=== PATIENT | male | born 1950 | race Caucasian/White ===

== ENCOUNTER 2019-10-16 09:21 | Inpatient (IN) | payer MEDICARE, BC ==
[~2019-10-16] VITALS: Ht 177.8 cm; Wt 102.1 kg
--- NOTE | 2019-10-16 09:32 | NUR ---
PT IS A/OX4, BIB RA[facility], C/O "SHAKY STOMACH". PT REPORTS HE IS AN [employer]BER [employer] AND [employer]ORT [employer] AND WHILE HE WAS ON THE ROAD, HE FELT AN EPISODE OF "SHAKY STOMACH" THAT HE DESCRIBES "DIARRHEA-LIKE". VSS. NO PAIN, C/P, SOB, N/V/D, DIZZINESS, HEADACHE. BGL WAS 80 IN THE FIELD.
--- NOTE | 2019-10-16 09:54 | NUR ---
SUYAPA IGLESIAS AT BEDSIDE FOR MSE.
[2019-10-16] MEDS ORDERED: IV NORMAL SALINE 1000 ML BAG IV ONE (10:15)
[2019-10-16 10:24] LABS: BASOPHILS % (AUTO) 0.6 % (0.0-2.0); EOSINOPHILS # (AUTO) 0.2 K/uL (0.0-0.7); EOSINOPHILS % (AUTO) 2.7 % (0.0-7.0); HEMATOCRIT 45.6 % (36.7-47.1); HEMOGLOBIN 15.8 g/dL (12.5-16.3); LYMPHOCYTES # (AUTO) 1.7 K/uL (20.0-40.0); LYMPHOCYTES % (AUTO) 27.3 % (20.5-51.5); MEAN CORPUSCULAR HEMOGLOBIN 31.3 uug (23.8-33.4); MEAN CORPUSCULAR HGB CONC 35 g/dL (32.5-36.3); MEAN CORPUSCULAR VOLUME 90.2 fL (73.0-96.2); MONOCYTES # (AUTO) 0.5 K/uL (2.0-10.0); NEUTROPHILS # (AUTO) 3.8 K/uL (1.8-8.9); NEUTROPHILS % (AUTO) 61.4 % (38.5-71.5); PLATELET COUNT (AUTO) 233 K/uL (152-348); RED BLOOD CELL COUNT(AUTO) 5.06 MIL/uL (4.06-5.63); WHITE BLOOD COUNT (AUTO) 6.2 K/uL (3.6-10.2)
[2019-10-16 10:27] LABS: *BILIRUBIN,URIN NEGATIVE (NEGATIVE); *BLOOD, URINE NEGATIVE (NEGATIVE); *CLARITY,URINE CLEAR (CLEAR); *COLOR,URINE YELLOW (YELLOW); *KETONES,URINE NEGATIVE (NEGATIVE); *UROBILINOGEN,URINE 0.2 E.U./dl (NORMAL); LEUKOCYTE ESTERASE ,URINE NEGATIVE (NEGATIVE); NITRITE, URINE NEGATIVE (NEGATIVE); UGLUCOSE NEGATIVE (NEGATIVE)
[2019-10-16 10:29] LABS: CREATININE 0.8 mg/dL (0.6-1.3)
[2019-10-16 10:41] LABS: BILIRUBIN,DIRECT 0.1 mg/dL (0.0-0.2); BILIRUBIN,TOTAL 0.6 mg/dL (0.2-1.0); TOTAL PROTEIN, SERUM 8.1 g/dL (6.4-8.2)
[2019-10-16] MEDS ORDERED: ASPIRIN 325 MG TABLET ONE (12:20)
[2019-10-16] MEDS ORDERED: ASPIRIN 325 MG TABLET PO ONE (12:30)
[2019-10-16] MEDS: ASPIRIN 325 MG TABLET PO ONE ×2 (12:31→12:33)
--- NOTE | 2019-10-16 12:31 | NUR ---
ER SPEAKING W/ DR. NORTH ON PHONE RE PT'S ADMISSION.
--- NOTE | 2019-10-16 12:47 | NUR ---
admitting report given to MILLI Silva.
--- NOTE | 2019-10-16 12:48 | NUR ---
Pt. admitted to Tele room 310 , under care of [facility] completed.
[2019-10-16 13:05] VITALS: BP 135/60
--- NOTE | 2019-10-16 13:20 | NUR ---
Admitted 69 year old male to telemetry with dx of TIA. AAOx4. SR on the tele monitor. IV intact and patent. No SOB noted. Denies any pain or dizziness at this time. Safety measures implemented. Call light within reach. Will continue to monitor.
[2019-10-16 15:52] VITALS: BP 130/64
[2019-10-16] MEDS ORDERED: Z GUARD REMEDY PASTE 57 GM TUBE TOP PRN (19:15)
[2019-10-17 03:00] VITALS: BP 99/48
--- NOTE | 2019-10-17 06:16 | NUR ---
SLEPT MOST OF THE NITE TELEMETRY SINUS ALBA
[2019-10-17 07:16] LABS: BASOPHILS % (AUTO) 0.6 % (0.0-2.0); EOSINOPHILS # (AUTO) 0.2 K/uL (0.0-0.7); EOSINOPHILS % (AUTO) 3.1 % (0.0-7.0); HEMATOCRIT 44.7 % (36.7-47.1); HEMOGLOBIN 15.5 g/dL (12.5-16.3); LYMPHOCYTES # (AUTO) 2.2 K/uL (20.0-40.0); LYMPHOCYTES % (AUTO) 33.6 % (20.5-51.5); MEAN CORPUSCULAR HEMOGLOBIN 31.2 uug (23.8-33.4); MEAN CORPUSCULAR HGB CONC 35 g/dL (32.5-36.3); MEAN CORPUSCULAR VOLUME 89.9 fL (73.0-96.2); MONOCYTES # (AUTO) 0.6 K/uL (2.0-10.0); MONOCYTES % (AUTO) 8.9 % (0.0-11.0); NEUTROPHILS # (AUTO) 3.5 K/uL (1.8-8.9); NEUTROPHILS % (AUTO) 53.8 % (38.5-71.5); PLATELET COUNT (AUTO) 225 K/uL (152-348); RED BLOOD CELL COUNT(AUTO) 4.97 MIL/uL (4.06-5.63); WHITE BLOOD COUNT (AUTO) 6.5 K/uL (3.6-10.2)
--- NOTE | 2019-10-17 08:12 | NUR ---
Received patient awake in bed. AAOx4. No s/s of acute distress. Denies any discomfort or dizziness. SR on monitor. Will continue to monitor.
[2019-10-17 08:17] LABS: CREATININE 0.8 mg/dL (0.6-1.3); POTASSIUM 4.1 mmol/L (3.5-5.1)
[2019-10-17] MEDS ORDERED: ASPIRIN EC 81 MG TABLET.DR PO SCH (09:00)
[2019-10-17] MEDS ORDERED: VALSARTAN 160 MG TABLET PO SCH (09:00)
[2019-10-17 10:34] LABS: THYROID STIMULATING HORMONE 1.143 mIU/mL (0.358-3.740)
[2019-10-17 11:48] VITALS: BP 157/68
[2019-10-17] MEDS ORDERED: IV NORMAL SALINE 250 ML IV ONE (12:49)
[2019-10-17] MEDS ORDERED: IOHEXOL 350 100 ML INFUS..BTL ONE (12:49)
[2019-10-17] MEDS ORDERED: SWABABLE VALVE TRANSFER SET EA MC ONE (12:49)
[2019-10-17 15:34] VITALS: BP 135/66
[2019-10-17] MEDS ORDERED: ATORVASTATIN 20 MG TABLET PO SCH (21:00)
--- NOTE | 2019-10-20 11:42 | NUR ---
SS consultation: This SW received email notification of this SS consultation on 10/17/2019, however this SW was not available on 10/17/2019. Patient discharged on 10/17/2019. SS consultation could not be completed. SS Director Gillian Rodrigez and Key Account Representative Madhavi Kelly were notified by this SW.
== END 2019-10-17 18:50 | disposition home or self-care (01) | DRG 69 ==
LOC: ER 09:21 → TELE3 12:56 → MEDSURG3 10-17 15:40
PROVIDERS: ADMIT Student in an Organized Health Care Education/Training Program; ATTEND Student in an Organized Health Care Education/Training Program
DX: G45.9 Transient cerebral ischemic attack, unspecified (principal); R40.2362 Coma scale, best motor response, obeys commands, at arrival to emergency department; R40.2142 Coma scale, eyes open, spontaneous, at arrival to emergency department; R40.2252 Coma scale, best verbal response, oriented, at arrival to emergency department; I10 Essential (primary) hypertension; Z87.891 Personal history of nicotine dependence; R42 Dizziness and giddiness; J34.1 Cyst and mucocele of nose and nasal sinus; E04.2 Nontoxic multinodular goiter
CPT/HCPCS: 36415; 70030-TC; 70450; 70496; 71045; 84443; 85025; 85730; 93005; 93307; 93880; A4663; G0378; J7030; J7050; Q9967